=== PATIENT | male | born 1990 | race Two or more races ===

== ENCOUNTER 2022-03-23 04:34 | Day surgery (SDC) | payer OTHER ==
[2022-03-22 08:47] VITALS: BMI 30.5
[2022-03-23] MEDS ORDERED: LIDOCAINE HCL 1% PRESERVATIVE FREE - 30ML VIAL EP ONE (13:09)
[2022-03-23] MEDS ORDERED: IOHEXOL 180 MG/1 ML ML IJ ONE (13:10)
[2022-03-23] MEDS ORDERED: DEXAMETHASONE SOD PHOSPHATE 10 MG/1 ML VIAL IVPUSH ONE (13:10)
[2022-03-23 15:48] VITALS: BP 120/70; PULSE 60; TEMP 97
== END 2022-03-23 14:00 | disposition home or self-care (01) ==
LOC: JASU-SURG 04:34 → EDSEX 10:15 → JASU-SURG 14:00
PROVIDERS: ATTEND Pain Medicine Pain Medicine
PROC: 3E0R33Z Introduction of Anti-inflammatory into Spinal Canal, Percutaneous Approach (ICD-10-PCS; 2022-03-23)
PROC: 3E0R3BZ Introduction of Anesthetic Agent into Spinal Canal, Percutaneous Approach (ICD-10-PCS; principal; 2022-03-23 11:15)
DX: M54.12 Radiculopathy, cervical region (principal)
CPT/HCPCS: 76000-TC-FY; J1100

== ENCOUNTER 2023-01-21 04:17 | Day surgery (SDC) | payer OTHER ==
[2023-01-19 15:48] VITALS: BMI 29.6
[~2023-01-21 04:17] MED LIST: ACETAMINOPHEN 500 MG TABLET (FP) PO PRN; DEXAMETHASONE SOD PHOSPHATE 10 MG/1 ML VIAL IVPUSH ONE; IOHEXOL 180 MG/1 ML ML IJ ONE; LIDOCAINE 1% P/F 10 MG/ML VIAL INF ONE
[2023-01-21] MEDS ORDERED: LIDOCAINE HCL/PF 1% SDV 5ML VIAL ONE (08:08)
[2023-01-21] MEDS ORDERED: DEXAMETHASONE SOD PHOSPHATE 4 MG/1 ML VIAL ONE (08:08)
[2023-01-21] MEDS ORDERED: DEXAMETHASONE SOD PHOSPHATE 10 MG/1 ML VIAL ONE ×2 (08:09→10:44)
[2023-01-21] MEDS ORDERED: ACETAMINOPHEN 500 MG TABLET (FP) PO PRN (09:27)
[2023-01-21] MEDS ORDERED: LIDOCAINE 1% P/F 10 MG/ML VIAL INF ONE (10:48)
[2023-01-21] MEDS ORDERED: DEXAMETHASONE SOD PHOSPHATE 10 MG/1 ML VIAL IVPUSH ONE (10:51)
[2023-01-21] MEDS ORDERED: IOHEXOL 180 MG/1 ML ML IJ ONE (10:51)
[2023-01-21 11:29] VITALS: TEMP 97.5
[2023-01-21 12:14] VITALS: BP 139/75; PULSE 66; RESP 18
== END 2023-01-21 15:12 | disposition home or self-care (01) ==
LOC: JASU-SURG 04:17
PROVIDERS: ATTEND Pain Medicine Pain Medicine
PROC: 3E0R3BZ Introduction of Anesthetic Agent into Spinal Canal, Percutaneous Approach (ICD-10-PCS; 2023-01-21)
PROC: 3E0R33Z Introduction of Anti-inflammatory into Spinal Canal, Percutaneous Approach (ICD-10-PCS; principal; 2023-01-21 10:27)
DX: M47.812 Spondylosis without myelopathy or radiculopathy, cervical region (principal)
CPT/HCPCS: 76000-TC-FY; J1100